=== PATIENT | female | born 1940 | race Caucasian/White ===

== ENCOUNTER 2016-11-01 16:00 | Inpatient (IN) | payer OTHER, MEDICAID ==
[2015-11-03 12:11] VITALS: Ht 154.9 cm; Wt 57.6 kg
[~2016-11-01] VITALS: Ht 154.9 cm; Wt 57.6 kg
[2016-11-01 16:00] VITALS: BP 115/58; PULSE 84; RESP 15; TEMP 99.8; O2SAT 95
[~2016-11-01 16:00] MED LIST: ACET-2165 PO; ASPI325T2 PO; CIPR-172 PO; DONE10TA44 PO; DONE5TAB3 PO; DULR10 RC; HYDR-1189 PO; HYDR-4100 PO; LACTIN PO; LORA-258 PO; MAGN400O4 PO; MEGE400O PO; MELA3TAB37 PO; MEMA10TA12 PO; MULT PO; MULT1CAP34 PO; NA P118E RC; OMEP40CA33 PO
--- NOTE | 2016-11-01 16:00 | NUR ---
Patient to ER bed 2 to gown for evaluation. Side rails up. Report given to ANNETTA Osborne.
--- NOTE | 2016-11-01 16:05 | NUR ---
Dr. mcguire at bedside examining th ept.
--- NOTE | 2016-11-01 16:10 | NUR ---
Pt. brought in to the ER from [facility] Awake by EMS for elevated temp around 0800. as per staff the temp around 0800 was 101. pt. was recently at [facility] for cellulitis of left lower leg, as per emt pt. was given tylenol at 0800 for temp 101,
--- NOTE | 2016-11-01 16:10 | NUR ---
99.0 at this time, Hx of chronic back pain, syncope, fall, dementia, hyperlipidemia, mood disorder, redness over left lower extremity, skin warm to touch, on fleet manager/dispatch
[2016-11-01] MEDS ORDERED: NACL 0.9% 1,000 ML IV SCH (16:19)
[2016-11-01] MEDS ORDERED: ATOR10TA68 PO (16:24)
[2016-11-01] MEDS ORDERED: DOXY-4 PO (16:24)
[2016-11-01] MEDS ORDERED: LACT1CAP61 PO (16:24)
[2016-11-01] MEDS ORDERED: CRAN200C PO (16:24)
[2016-11-01] MEDS ORDERED: RISP0.5T2 PO (16:24)
[2016-11-01 16:55] LABS: BASOPHILS # (AUTO) 0.1 K/uL (0.0-0.2); BASOPHILS % (AUTO) 1.2 % (0.0-2.0); EOSINOPHILS # (AUTO) 0.1 K/uL (0.0-0.4); EOSINOPHILS % (AUTO) 0.7 % (0.0-4.0); HEMOGLOBIN 11.5 g/dL (12.0-16.0); LYMPHOCYTES # (AUTO) 1.8 K/uL (1.0-5.5); MEAN CORPUSCULAR HEMOGLOBIN 29 pg (27-31); MEAN CORPUSCULAR HGB CONC 33 % (32-36); MEAN CORPUSCULAR VOLUME 89 fL (79.0-98.0); MONOCYTES # (AUTO) 1.4 K/uL (0.0-1.0); MONOCYTES % (AUTO) 11.5 % (1.7-9.3); NEUTROPHILS # (AUTO) 8.6 K/uL (1.8-7.7); NEUTROPHILS % (AUTO) 71.6 % (40.0-70.0); PLATELET COUNT (AUTO) 357 K/uL (130-430); RED BLOOD CELL COUNT(AUTO) 3.94 MIL/uL (4.2-6.2); RED CELL DISTRIBUTION WIDTH 13.2 % (9.0-15.0)
[2016-11-01 17:16] LABS: ANION GAP 10 (5-15); CALCIUM 8.9 mg/dL (8.4-11.0); CHLORIDE 106 mmol/L (98-107); CREATININE 0.93 mg/dL (0.55-1.30); GLUCOSE 113 mg/dL (70-99); POTASSIUM 4.3 mmol/L (3.5-5.1); SODIUM SERUM 140 mmol/L (136-145); UREA NITROGEN, BLOOD 27 mg/dL (8-21)
[2016-11-01 17:28] LABS: INR 1.1 (0.8-1.2); PROTHROMBIN TIME 11.9 SECS (9.5-12.5)
--- NOTE | 2016-11-01 17:30 | NUR ---
PT. IN BED, AWAKE ALERT, RESPONSIVE TO PAINFUL STIMULI, VITALS WNL
[2016-11-01 17:32] LABS: ALANINE AMINOTRANSFERASE 39 U/L (12-78); ALBUMIN 2.2 g/dL (3.4-4.8); ASPARTATE AMINOTRANSFERASE 105 U/L (10-37); TOTAL BILIRUBIN 0.3 mg/dL (0.0-1.0)
[2016-11-01] MEDS ORDERED: VANCOMYCIN HCL 1,000 MG in NS 250 ML IV ONE ×2 (18:15→19:30)
[2016-11-01] MEDS ORDERED: PIPERACILLIN/TAZO 3.375 GM in NS 50 ML IV ONE (18:15)
[2016-11-01] MEDS ORDERED: NACL 0.9% 1,000 ML IV ONE (18:15)
[2016-11-01] MEDS ORDERED: cefTRIAXone 1 GM in D5W 50 ML IV ONE (18:15)
[2016-11-01] MEDS ORDERED: cefTRIAXone 1 GM VIAL ONE (18:27)
--- NOTE | 2016-11-01 18:30 | NUR ---
# 16 FR Chambers catheter with use of sterile technique. Immediate return of 50 cc urine noted. Bedside drainage bag placed below level of bladder. Urine sample collected and sent to lab BY MARTHA LITTLEJOHN Pt tolerated procedure WELL.
[2016-11-01 18:39] LABS: BILIRUBIN,URINE NEGATIVE (NEGATIVE); BLOOD, URINE 3+ (NEGATIVE); CLARITY/URINE SL HAZY (CLEAR); COLOR,URINE YELLOW (YELLOW); GLUCOSE,URINE NEGATIVE (NEGATIVE); KETONES,URINE NEGATIVE (NEGATIVE); LEUKOCYTE ESTERASE ,URINE NEGATIVE (NEGATIVE); NITRITE, URINE NEGATIVE (NEGATIVE); PH,URINE 5.5 (5.0-8.0); PROTEIN URINE 1+ (NEGATIVE); UROBILINOGEN,URINE 0.2 (0.2-1.0)
[2016-11-01 19:14] LABS: BACTERIA,URINE FEW /HPF (None Seen); MUCUS,URINE None Seen /LPF (None Seen)
--- NOTE | 2016-11-01 19:35 | NUR ---
Patient will be admitted to care of DR. VAZ Admitted to TELE unit. Will go to room 113 B. Summary report printed. Report given to DINING SERVICES MANAGER
--- NOTE | 2016-11-01 19:49 | NUR ---
ADMISSION NOTE Received patient from ER via marcianorgalindo, received report from angela LITTLEJOHN. Patient admitted with diagnosis of ALOC. Patient oriented to hospital routine, call light, toileting and safety-patient verbalized understanding.
--- NOTE | 2016-11-01 20:00 | NUR ---
INITIAL NOTES: PT IS SLEEPING. PT WAKES UP WHEN CALLED UPON BY NEPHEW. NOT DISTRESS. PT MOAN WHEN LEFT LEG IS MOVE. VITAL SIGN ARE WITH IN NORMAL LIMIT. IV ON LEFT WRIST GAUGE 22- WITH ONGOING NS. PT HAS GOMEZ CATHETER DRAINING WITH YELLOW URINE. NO SKIN BREAKDOWN. SAFETY PRECAUTION. NEEDS ATTENDED. NIECE AT BEDSIDE. WILL MONITOR.
[2016-11-01 20:02] VITALS: BP 120/66; PULSE 92; RESP 18; TEMP 96; O2SAT 94
[2016-11-01] MEDS: NACL 0.9% 1,000 ML IV SCH (20:14)
[2016-11-01] MEDS ORDERED: VANCOMYCIN HCL 1000 MG/VIAL IV ONE (20:51)
--- NOTE | 2016-11-01 22:00 | NUR ---
MD ROUNDS: SEEN BY DR. PANFILO OTERO MADE ORDER.
--- NOTE | 2016-11-01 23:42 | NUR ---
received call from dr. lay order zosyn 3.375mg q6hr ivpb. start at 12mid night.
[2016-11-02] VITALS (7 sets, daily range): BP systolic 116–131; BP diastolic 55–95; PULSE 67–84; RESP 16–24; TEMP 97.2–99.7; O2SAT 93–98
--- NOTE | 2016-11-02 | NUR ---
ROUND NOTES: SLEEPING. NO SOB AND NO PAIN. IVF INFUSING WELL. WILL MONITOR.
[2016-11-02] MEDS ORDERED: PIPERACILLIN/TAZOBACTAM 3.375 GM/VIAL (ZOSYN) IV ONE (01:00)
--- NOTE | 2016-11-02 02:00 | NUR ---
ROUND: RESTING QUIETLY. NO SOB. NO DISCOMFORT.SAFETY ON. WILL MONITOR.
--- NOTE | 2016-11-02 04:00 | NUR ---
ROUND NOTES: SLEEPING. COMFORTABLE. NO BREATHING DIFFICULTY. SIDE RAILS UP. ALARM ON. WILL MONITOR..
[2016-11-02] MEDS: NACL 0.9% 1,000 ML IV SCH ×3 (05:06→23:26)
[2016-11-02] MEDS: PIPERACILLIN/TAZO 3.375/DEX-IS 50 ML IV SCH ×5 (06:23→23:25)
--- NOTE | 2016-11-02 06:59 | NUR ---
ROUND NOTES: SLEEPING. COMFORTABLE. NO BREATHING DIFFICULTY.REPOSITION. SIDE RAILS UP. ALARM ON. WILL MONITOR..
--- NOTE | 2016-11-02 07:03 | NUR ---
KURT VAZ-SPOKE TO MD. ASK MD FOR DNR ORDER. MD ORDER DNR STATUS. WITNESS BY CN.
--- NOTE | 2016-11-02 07:05 | NUR ---
CLOSING: PT IS AWAKE,. QUIETLY. EYES OPEN. STABLE. IV INFUSING WELL. NEEDS ATTENDED. WILL GIVE BEDSIDE REPORT TO AM RN.
--- NOTE | 2016-11-02 07:45 | NUR ---
Patient sleepy does not talk , unable to feed patient doesnt want to open the mouth , IV fluid infusing well DR. ascencio aware , will continue to monitor,
[2016-11-02 07:59] LABS: BASOPHILS % (AUTO) 0.2 % (0.0-2.0); EOSINOPHILS # (AUTO) 0.1 K/uL (0.0-0.4); EOSINOPHILS % (AUTO) 0.6 % (0.0-4.0); HEMATOCRIT 31.3 % (36-48); HEMOGLOBIN 10.6 g/dL (12.0-16.0); LYMPHOCYTES # (AUTO) 1.8 K/uL (1.0-5.5); LYMPHOCYTES % (AUTO) 14.4 % (20.5-51.5); MEAN CORPUSCULAR HEMOGLOBIN 30 pg (27-31); MEAN CORPUSCULAR HGB CONC 34 % (32-36); MEAN CORPUSCULAR VOLUME 89 fL (79.0-98.0); MONOCYTES # (AUTO) 1.3 K/uL (0.0-1.0); NEUTROPHILS # (AUTO) 9.5 K/uL (1.8-7.7); NEUTROPHILS % (AUTO) 74.8 % (40.0-70.0); PLATELET COUNT (AUTO) 288 K/uL (130-430); RED BLOOD CELL COUNT(AUTO) 3.54 MIL/uL (4.2-6.2); RED CELL DISTRIBUTION WIDTH 13.4 % (9.0-15.0); WHITE BLOOD COUNT (AUTO) 12.7 K/uL (4.8-10.8)
[2016-11-02 08:07] LABS: ALANINE AMINOTRANSFERASE 25 U/L (12-78); ALBUMIN 2.1 g/dL (3.4-4.8); ANION GAP 6 (5-15); ASPARTATE AMINOTRANSFERASE 66 U/L (10-37); CALCIUM 8.5 mg/dL (8.4-11.0); CHLORIDE 108 mmol/L (98-107); FREE T4 (FREE THYROXINE) 0.9 ng/dL (0.6-1.6); GLUCOSE 106 mg/dL (70-99); POTASSIUM 3.8 mmol/L (3.5-5.1); SODIUM SERUM 140 mmol/L (136-145); TOTAL BILIRUBIN 0.4 mg/dL (0.0-1.0); TOTAL PROTEIN, SERUM 6.4 g/dL (6.4-8.3); UREA NITROGEN, BLOOD 19 mg/dL (8-21)
[2016-11-02 08:28] LABS: IRON (SERUM) 10 mcg/dL (37-145); TOTAL IRON BIND. CAPACITY 159 ug/dL (250-450)
[2016-11-02] MEDS: cefTRIAXone 1 GM IVPB PREMIX 50 ML IV SCH (08:31)
--- NOTE | 2016-11-02 09:18 | NUR ---
Nutrition Update Junior Scale 16 noted. Pt admitted for ALOC. Diet: mechanical soft BMI: 24 kg/m2 RD to follow per nutrition care standards.
[2016-11-02 09:58] LABS: ERYTHROCYTE SEDIMENTATION RATE 81 MM/HR (0-20)
[2016-11-02] MEDS ORDERED: BISACODYL 10 MG/SUPPOSITORY RC PRN (12:30)
[2016-11-02] MEDS ORDERED: BISACODYL 10 MG/SUPPOSITORY RC ONE (12:30)
[2016-11-02 12:58] LABS: THYROID STIMULATING HORMONE 1.61 uIu/mL (0.36-3.74)
--- NOTE | 2016-11-02 13:30 | NUR ---
Patient came back from CT scan yelling seems in pain left hip repositioned , Luann Koenig informed seen and examined due pain medication given will continue to monitor.
[2016-11-02] MEDS ORDERED: ACETAMINOPHEN 325 MG TABLET PO PRN (13:45)
[2016-11-02] MEDS: KETOROLAC TROMETHAMINE 15 MG VIAL IVP PRN ×2 (13:57→20:18)
[2016-11-02] MEDS ORDERED: KETOROLAC TROMETHAMINE 15 MG VIAL ONE (14:00)
[2016-11-02] MEDS: SOD FERRIC GLUC COMPLEX/SUC 125 MG in NS 100 ML IV SCH (16:09)
--- NOTE | 2016-11-02 16:15 | NUR ---
Rounds Patient is very awake talking facing left side , offered food and drinks but refused to eat , left lower hip noticed with redness and induration hard to touch skin intact will informed admitting doctor. Addendum: 11/02/16 at 1630 by Xiomara Ro RN Dr. Kong was informed regarding subcutaneous induration in the left hip /ct scan result abdomen/pelvis will see the patient in AM.
--- NOTE | 2016-11-02 18:40 | NUR ---
CLOSING NOTES Patient is very awake keep yelling on/off asked if shes in pain denies, repositioned to left side , assisted in feeding but refused, IV Fluid infusing well will continue to monitor
--- NOTE | 2016-11-02 20:00 | NUR ---
Initial note Received awake, alert to name only. Yelling in room. Asked if in pain. Stated have generalized body pain, unable to rate pain. NS infusing to left wrist IV access without difficulty. No shortness of breath noted. Chambers catheter intact draining gary urine. Call light placed within reach. Reoriented to place & time. Fall precautions in place.
--- NOTE | 2016-11-02 20:20 | NUR ---
pain c/o generalized body pain unable to rate pain. stated pain aching and a lot. Toradol IV given as ordered.
--- NOTE | 2016-11-02 20:37 | NUR ---
PAGED PAGED COLETTE OJSE AT [phone] SPOKE WITH FATIMAH.
--- NOTE | 2016-11-02 20:44 | NUR ---
pain/MD Yelling in room. reassessed for pain. stated pain still the same. asked to show where her pain is. stated, "it's in Kristin." Started yelling "Kristin". Reoriented to place & time. paged and returned call. Asked for something to relax patient with new orders given.
[2016-11-02] MEDS: QUEtiapine FUMARATE 25 MG TABLET PO SCH (21:27)
--- NOTE | 2016-11-02 21:31 | NUR ---
Agitation Remains confused yelling in bed. Denies pain. Seroquel po given as ordered.
--- NOTE | 2016-11-03 02:17 | NUR ---
Rounds Resting quietly with eyes closed, no apparent distress noted. No c/o pain or discomfort. Call light placed within reach. Fall precautions in place.
[2016-11-03 03:52] VITALS: BP 113/80; PULSE 72; RESP 18; TEMP 96.6; O2SAT 94
--- NOTE | 2016-11-03 05:02 | NUR ---
hygiene Had moderate formed brown stool. Partial bed bath given with TEST CONSULTANT. Gown and linen changed. Turned and repositioned with pillow support.
[2016-11-03] MEDS: PIPERACILLIN/TAZO 3.375/DEX-IS 50 ML IV SCH ×3 (05:26→17:15)
--- NOTE | 2016-11-03 07:00 | NUR ---
Closing Note Resting quietly, no apparent distress. No c/o pain or discomfort. Remains oriented to name only, confused. Reoriented to place & time. Call light placed within reach. Fall precautions in place. All needs attended to. Will give report to oncoming shift RN.
[2016-11-03 07:29] LABS: BASOPHILS % (AUTO) 0.4 % (0.0-2.0); EOSINOPHILS # (AUTO) 0.4 K/uL (0.0-0.4); EOSINOPHILS % (AUTO) 3.6 % (0.0-4.0); HEMATOCRIT 30.7 % (36-48); HEMOGLOBIN 10.2 g/dL (12.0-16.0); LYMPHOCYTES # (AUTO) 1.5 K/uL (1.0-5.5); LYMPHOCYTES % (AUTO) 12.9 % (20.5-51.5); MEAN CORPUSCULAR HEMOGLOBIN 30 pg (27-31); MEAN CORPUSCULAR HGB CONC 33 % (32-36); MEAN CORPUSCULAR VOLUME 89 fL (79.0-98.0); MONOCYTES # (AUTO) 0.9 K/uL (0.0-1.0); MONOCYTES % (AUTO) 7.5 % (1.7-9.3); NEUTROPHILS # (AUTO) 9.2 K/uL (1.8-7.7); NEUTROPHILS % (AUTO) 75.6 % (40.0-70.0); PLATELET COUNT (AUTO) 316 K/uL (130-430); RED BLOOD CELL COUNT(AUTO) 3.44 MIL/uL (4.2-6.2); RED CELL DISTRIBUTION WIDTH 13.5 % (9.0-15.0)
[2016-11-03 07:46] LABS: ALANINE AMINOTRANSFERASE 27 U/L (12-78); ALBUMIN 1.8 g/dL (3.4-4.8); ANION GAP 8 (5-15); ASPARTATE AMINOTRANSFERASE 38 U/L (10-37); CALCIUM 8.6 mg/dL (8.4-11.0); CHLORIDE 110 mmol/L (98-107); CREATININE 0.91 mg/dL (0.55-1.30); GLUCOSE 94 mg/dL (70-99); POTASSIUM 3.8 mmol/L (3.5-5.1); SODIUM SERUM 144 mmol/L (136-145); TOTAL BILIRUBIN 0.3 mg/dL (0.0-1.0); TOTAL PROTEIN, SERUM 6.1 g/dL (6.4-8.3); UREA NITROGEN, BLOOD 20 mg/dL (8-21)
--- NOTE | 2016-11-03 08:00 | NUR ---
INITIAL NOTES RECEIVED PATIENT ON BED AWAKE.BREATHING EVEN AND UNLABORED.NO ACUTE DISTRESS.IVF INFUSING WELL;NO SIGNS AND SYMPTOMS OF INFILTRATION.SAFETY AND FALL PRECAUTIONS IN PLACE.CALL LIGHT WITHIN REACH
[2016-11-03] MEDS: cefTRIAXone 1 GM IVPB PREMIX 50 ML IV SCH (08:53)
[2016-11-03] MEDS: QUEtiapine FUMARATE 25 MG TABLET PO SCH ×2 (08:53→22:40)
[2016-11-03] MEDS: NACL 0.9% 1,000 ML IV SCH (08:58)
[2016-11-03 09:06] VITALS: BP 142/64; PULSE 70; RESP 18; TEMP 96.8; O2SAT 98
--- NOTE | 2016-11-03 10:20 | NUR ---
NOTES PATIENT ON BED AWAKE.CALM AND RELAX;NO ACUTE DISTRESS
[2016-11-03 12:20] VITALS: BP 139/62; PULSE 72; RESP 17; TEMP 98; O2SAT 98
--- NOTE | 2016-11-03 12:45 | NUR ---
NOTES LUNCH SERVED;REFUSED TO EAT;ENCOURAGED AND OFFERED ALTERNATIVES BUT REFUSED
[2016-11-03] MEDS: SOD FERRIC GLUC COMPLEX/SUC 125 MG in NS 100 ML IV SCH (12:49)
[2016-11-03 14:10] LABS: FOLATE (FOLIC ACID) 8.9 ng/mL (>3.0)
--- NOTE | 2016-11-03 14:40 | NUR ---
NOTES PATIENT ON BED ASLEEP.NO ACUTE DISTRESS
[2016-11-03 16:24] VITALS: BP 142/68; PULSE 80; RESP 17; TEMP 98; O2SAT 97
--- NOTE | 2016-11-03 17:20 | NUR ---
NOTES PATIENT STARTED YELLING NAMES;ASKED WHAT SHE WANTS BUT RESPOND INAPPROPRIATELY.REPOSITIONING DONE FOR COMFORT
[2016-11-03] MEDS: KETOROLAC TROMETHAMINE 15 MG VIAL IVP PRN (17:49)
--- NOTE | 2016-11-03 18:50 | NUR ---
CLOSING NOTES PATIENT ON BED AWAKE STILL WITH EPISODES OF YELLING.NO SIGNS AND SYMPTOMS OF ACUTE DISTRESS Addendum: 11/03/16 at 2009 by Ghazal Collazo RN BREATHING EVEN AND UNLABORED.IVF INFUSING WELL;NO SIGNS AND SYMPTOMS OF INFILTRATION.SAFETY AND FALL PRECAUTIONS IN PLACE.CALL LIGHT WITHIN REACH.WILL ENDORSE TO NEXT SHIFT ACCORDINGLY
--- NOTE | 2016-11-03 19:30 | NUR ---
OPENING NOTE PATIENT IS A/OX1. BREATHING IS NON LABORED. NO SIGNS OF DISTRESS. BREATHING IS NON LABORED. PATIENT IS TALKING AND IS SITTING UP IN BED. IV IS PATENT AND SHOWS NO SIGNS OF COMPLICATIONS. GOMEZ IS NOTED AND IS PATENT. CALL LIGHT IS WITHIN REACH. BED ALARM IS ON. PATIENT INSTRUCTED TO CALL FOR ASSISTANCE. WILL CONTINUE TO MONITOR.
[2016-11-03 19:50] VITALS: BP 123/67; RESP 16; TEMP 98.4; O2SAT 98
[2016-11-03] MEDS ORDERED: VANCOMYCIN HCL 1,000 MG in NS 250 ML IV ONE (20:00)
--- NOTE | 2016-11-03 21:50 | NUR ---
ROUNDS PATIENT IS IN BED AND IS CONFUSED. PATIENT WAS REORIENTED TO SURROUNDINGS. PATIENT IS CALMED DOWNED. NO SIGNS OF DISTRESS. BREATHING IS NON LABORED. BED ALARM IS ON. CALL LIGHT IS WITHIN REACH. WILL CONTINUE TO MONITOR.
[2016-11-03] MEDS: LACTOBACILLUS RHAMNOSUS GG 1 CAP CAPSULE PO SCH (22:40)
[2016-11-04] MEDS: AMPICILLIN SODIUM/SULBACTAM NA 1.5 GM in NS 50 ML IV SCH ×4 (00:03→17:04)
--- NOTE | 2016-11-04 00:15 | NUR ---
ROUNDS PATIENT IS IN BED SLEEPING. NO SIGNS OF DISTRESS. BREATHING IS NON LABORED. CALL LIGHT IS WITHIN REACH. BED ALARM IS ON. WILL CONTINUE TO MONITOR.
[2016-11-04 00:19] VITALS: BP 126/56; PULSE 77; RESP 18; TEMP 97.9; O2SAT 96
[2016-11-04] MEDS: NACL 0.9% 1,000 ML IV SCH ×2 (01:36→06:48)
--- NOTE | 2016-11-04 02:20 | NUR ---
ROUNDS PATIENT WAS GIVEN A WARM BLANKET. CALL LIGHT IS WITHIN REACH. BED ALARM IS ON. WILL CONTINUE TO MONITOR.
[2016-11-04 04:18] VITALS: BP 130/71; PULSE 69; RESP 18; TEMP 97.9; O2SAT 94
--- NOTE | 2016-11-04 06:30 | NUR ---
CLOSING NOTES PATIENT IS IN BED WATCHING TV. NO SIGNS OF DISTRESS. BREATHING IS NON LABORED. CALL LIGHT IS WITHIN REACH. BED ALARM IS ON. PATIENT WAS GIVEN WATER AND APPLE JUICE TO DRINK. WILL ENDORSE CARE TO THE MORNING NURSE.
[2016-11-04 07:45] VITALS: BP 150/91; PULSE 76; RESP 18; TEMP 97.6; O2SAT 99
--- NOTE | 2016-11-04 07:48 | NUR ---
INITIAL NOTES RECEIVED PATIENT ON BED AWAKE.CALM AND RELAX.BREATHING EVEN AND UNLABORED.NO ACUTE DISTRESS.IVF INFUSING WELL;NO SIGNS AND SYMPTOMS OF INFILTRATION.SAFETY AND FALL PRECAUTIONS IN PLACE.CALL LIGHT WITHIN REACH
[2016-11-04 08:13] LABS: BASOPHILS # (AUTO) 0.1 K/uL (0.0-0.2); BASOPHILS % (AUTO) 0.6 % (0.0-2.0); EOSINOPHILS # (AUTO) 0.5 K/uL (0.0-0.4); EOSINOPHILS % (AUTO) 4.5 % (0.0-4.0); HEMATOCRIT 30.6 % (36-48); LYMPHOCYTES # (AUTO) 1.7 K/uL (1.0-5.5); LYMPHOCYTES % (AUTO) 16.3 % (20.5-51.5); MEAN CORPUSCULAR HEMOGLOBIN 29 pg (27-31); MEAN CORPUSCULAR HGB CONC 33 % (32-36); MEAN CORPUSCULAR VOLUME 89 fL (79.0-98.0); MONOCYTES # (AUTO) 0.7 K/uL (0.0-1.0); MONOCYTES % (AUTO) 6.8 % (1.7-9.3); NEUTROPHILS # (AUTO) 7.3 K/uL (1.8-7.7); NEUTROPHILS % (AUTO) 71.8 % (40.0-70.0); PLATELET COUNT (AUTO) 397 K/uL (130-430); RED BLOOD CELL COUNT(AUTO) 3.42 MIL/uL (4.2-6.2); RED CELL DISTRIBUTION WIDTH 13.4 % (9.0-15.0); WHITE BLOOD COUNT (AUTO) 10.3 K/uL (4.8-10.8)
[2016-11-04] MEDS: LACTOBACILLUS RHAMNOSUS GG 1 CAP CAPSULE PO SCH ×2 (08:45→22:12)
[2016-11-04 08:46] LABS: ANION GAP 11 (5-15); CALCIUM 8.6 mg/dL (8.4-11.0); CHLORIDE 111 mmol/L (98-107); CREATININE 0.77 mg/dL (0.55-1.30); GLUCOSE 73 mg/dL (70-99); POTASSIUM 3.5 mmol/L (3.5-5.1); SODIUM SERUM 143 mmol/L (136-145); UREA NITROGEN, BLOOD 20 mg/dL (8-21)
[2016-11-04] MEDS: QUEtiapine FUMARATE 25 MG TABLET PO SCH ×2 (08:46→22:12)
--- NOTE | 2016-11-04 10:32 | NUR ---
NOTES PATIENT ON BED AWAKE;CALM AND RELAX;NO ACUTE DISTRESS
[2016-11-04] MEDS: KETOROLAC TROMETHAMINE 15 MG VIAL IVP PRN (11:40)
[2016-11-04 12:05] VITALS: BP 134/66; PULSE 57; RESP 20; TEMP 97; O2SAT 99
[2016-11-04] MEDS: SOD FERRIC GLUC COMPLEX/SUC 125 MG in NS 100 ML IV SCH (12:36)
--- NOTE | 2016-11-04 12:40 | NUR ---
NOTES TRIED TO FEED PATIENT BUT REFUSED;ENCOURAGED AND OFFERED STILL REFUSED
[2016-11-04 16:48] VITALS: BP 147/72; PULSE 80; RESP 20; TEMP 97.8; O2SAT 98
[2016-11-04] MEDS ORDERED: QUEtiapine FUMARATE 25 MG TABLET PO ONE (17:30)
[2016-11-04] MEDS ORDERED: MORPHINE 2 MG/ML INJ. SYRINGE IVP PRN (17:30)
[2016-11-04] MEDS ORDERED: CYANOCOBALAMIN 1000 MCG/ML VIAL IM ONE (17:30)
[2016-11-04] MEDS ORDERED: QUEtiapine FUMARATE 25 MG TABLET PO SCH (17:30)
[2016-11-04] MEDS ORDERED: LORazepam 2 MG/ML VIAL IVP PRN (17:30)
--- NOTE | 2016-11-04 17:30 | NUR ---
NOTES SEEN AND EXAMINED BY DR. VAZ;WITH ORDERS AND CARRIED OUT Addendum: 11/04/16 at 1954 by Ghazal Collazo RN INFORMED DR. VAZ THAT PATIENT HAS NOT BEEN EATING EVEN WITH ENCOURAGEMENT
[2016-11-04] MEDS ORDERED: MEGESTROL ACETATE 400 MG/10 ML UDC PO ONE (17:45)
[2016-11-04] MEDS: LR 1,000 ML IV SCH ×2 (18:44→22:15)
--- NOTE | 2016-11-04 19:00 | NUR ---
CLOSING NOTES PATIENT ON BED AWAKE.CALM AND RELAX.BREATHING EVEN AND UNLABORED.NO ACUTE DISTRESS.IVF INFUSING WELL;NO SIGNS AND SYMPTOMS OF INFILTRATION.SAFETY AND FALL PRECAUTIONS IN PLACE.CALL LIGHT WITHIN REACH.WILL ENDORSE TO NEXT SHIFT ACCORDINGLY
--- NOTE | 2016-11-04 19:50 | NUR ---
OPENING NOTES PATIENT IS A/O2. NO COMPLAINTS OF PAIN(GRIMACING). VITAL SIGNS ARE STABLE. BREATHING IS NON LABORED. NO SIGNS OF DISTRESS. GOMEZ IS NOTED AND IS PATENT. IV SHOWS NO SIGNS OF COMPLICATIONS. PATIENT INSTRUCTED TO CALL FOR ASSISTANCE. CALL LIGHT IS WITHIN REACH. BED ALARM IS ON. WILL CONTINUE TO MONITOR.
[2016-11-04 20:41] VITALS: BP 116/57; PULSE 88; RESP 17; TEMP 97.9
--- NOTE | 2016-11-04 21:30 | NUR ---
ROUNDS PATIENT WAS GIVEN JUICE TO DRINK.
[2016-11-04] MEDS: VANCOMYCIN HCL 750 MG in NS 250 ML IV SCH (22:13)
[2016-11-05] VITALS (7 sets, daily range): BP systolic 96–114; BP diastolic 43–64; PULSE 65–80; RESP 16–24; TEMP 97–97.9; O2SAT 93–97
[2016-11-05] MEDS: AMPICILLIN SODIUM/SULBACTAM NA 1.5 GM in NS 50 ML IV SCH ×5 (00:39→23:36)
--- NOTE | 2016-11-05 01:14 | NUR ---
ROUNDS PATIENT WAS GIVEN A WARM BLANKET. NO SIGNS OF DISTRESS. BREATHING IS NON LABORED. CALL LIGHT IS WITHIN REACH. BED ALARM IS ON. WILL CONTINUE TO MONITOR.
--- NOTE | 2016-11-05 06:35 | NUR ---
CLOSING NOTES PATIENT IS IN BED SLEEPING. BREATHING IS NON LABORED. NO SIGNS OF DISTRESS. CALL LIGHT IS WITHIN REACH. BED ALARM IS ON. IV SHOWS NO SIGNS OF COMPLICATIONS. WILL ENDORSE CARE TO THE MORNING NURSE.
--- NOTE | 2016-11-05 07:30 | NUR ---
initial notes: pt sleeping. stable. i.v. access patent. call light within reach. report given at bedside.
[2016-11-05 08:18] LABS: BASOPHILS # (AUTO) 0.1 K/uL (0.0-0.2); BASOPHILS % (AUTO) 0.6 % (0.0-2.0); EOSINOPHILS # (AUTO) 0.6 K/uL (0.0-0.4); EOSINOPHILS % (AUTO) 6.6 % (0.0-4.0); HEMATOCRIT 32.5 % (36-48); HEMOGLOBIN 10.9 g/dL (12.0-16.0); LYMPHOCYTES # (AUTO) 1.9 K/uL (1.0-5.5); LYMPHOCYTES % (AUTO) 20.1 % (20.5-51.5); MEAN CORPUSCULAR HEMOGLOBIN 30 pg (27-31); MEAN CORPUSCULAR HGB CONC 34 % (32-36); MEAN CORPUSCULAR VOLUME 89 fL (79.0-98.0); MONOCYTES # (AUTO) 0.7 K/uL (0.0-1.0); MONOCYTES % (AUTO) 7.6 % (1.7-9.3); NEUTROPHILS # (AUTO) 6.2 K/uL (1.8-7.7); NEUTROPHILS % (AUTO) 65.1 % (40.0-70.0); PLATELET COUNT (AUTO) 439 K/uL (130-430); RED BLOOD CELL COUNT(AUTO) 3.63 MIL/uL (4.2-6.2); RED CELL DISTRIBUTION WIDTH 13.7 % (9.0-15.0); WHITE BLOOD COUNT (AUTO) 9.5 K/uL (4.8-10.8)
[2016-11-05 08:26] LABS: ANION GAP 6 (5-15); CALCIUM 8.8 mg/dL (8.4-11.0); CHLORIDE 114 mmol/L (98-107); CREATININE 0.81 mg/dL (0.55-1.30); GLUCOSE 91 mg/dL (70-99); POTASSIUM 3.6 mmol/L (3.5-5.1); SODIUM SERUM 145 mmol/L (136-145); UREA NITROGEN, BLOOD 15 mg/dL (8-21)
[2016-11-05] MEDS: LR 1,000 ML IV SCH (08:46)
[2016-11-05 08:53] LABS: ERYTHROCYTE SEDIMENTATION RATE 62 MM/HR (0-20)
[2016-11-05] MEDS: QUEtiapine FUMARATE 25 MG TABLET PO SCH ×2 (09:32→21:20)
[2016-11-05] MEDS: MEGESTROL ACETATE 400 MG/10 ML UDC PO SCH (09:32)
[2016-11-05] MEDS: LACTOBACILLUS RHAMNOSUS GG 1 CAP CAPSULE PO SCH ×2 (09:33→21:20)
[2016-11-05] MEDS: KETOROLAC TROMETHAMINE 15 MG VIAL IVP PRN (10:18)
--- NOTE | 2016-11-05 10:20 | NUR ---
rounds: patient keeps on screaming and asking for help. Pain meds given.
--- NOTE | 2016-11-05 12:20 | NUR ---
DISCHARGE PLANNING Faxed referral to [phone] for possible discharge back to SNF. Will follow up. Placed transportation packet in nurses station. Any ambulance can be arranged.
--- NOTE | 2016-11-05 12:21 | NUR ---
rounds: patient sleeping. no distress noted. antibiotic administered.
[2016-11-05] MEDS: SOD FERRIC GLUC COMPLEX/SUC 125 MG in NS 100 ML IV SCH (12:55)
--- NOTE | 2016-11-05 14:22 | NUR ---
PT NOTES CHART REVIEWED AND CLEARED FOR PT BY RN. PATIENT IN SEMIFOWLER POSITION RESTING AND SOMEWHAT EASY TO AROUSE. PATIENT INITIALLY DECLINED PARTICIPATION IN THERAPY STATING, "NO!". PATIENT MOTIVATED AND EDUCATED. PATIENTS BP WAS TAKEN 88/36, RN MADE AWARE AND WILL HOLD THERAPY D/T LOW BP AT THIS TIME. RN MONITORING PATIENT. WILL FOLLOW UP PATIENT NEXT SESSION IF POSSIBLE, RN AWARE. PVEx1 Addendum: 11/05/16 at 1448 by Noemy Isaacs PT PHYSICAL THERAPY CO-SIGN The Physical Therapy Progress Notes documented by Unit Trust Manager have been reviewed. Reviewed/Co-Signed by: Noemy Isaacs,PT Documentation Done by: Christopher Hubbard, BUTT SAWYER I concur with the documentation of this BUTT SAWYER. Plan: continue PT as per plan of care.
--- NOTE | 2016-11-05 14:35 | NUR ---
Keron rounds: Dr. Kong informed patient is whizzing and low BP with an order to stop fluids, lasix and neb treatment.
[2016-11-05] MEDS ORDERED: methylPREDNISolone SOD SUCC/PF 62.5 MG/ML VIAL IVP ONE (14:45)
[2016-11-05] MEDS ORDERED: FUROSEMIDE 20 MG TABLET PO ONE (15:00)
[2016-11-05] MEDS ORDERED: FUROSEMIDE 20 MG/2 ML VIAL IVP ONE (15:15)
[2016-11-05] MEDS: ALBUTEROL SULFATE 0.083% 2.5 MG/3 ML VIAL.NEB INH SCH ×3 (15:27→23:46)
[2016-11-05] MEDS ORDERED: HALOPERIDOL 1 MG TABLET (HALDOL) PO ONE (16:00)
--- NOTE | 2016-11-05 16:00 | NUR ---
rounds: patient keeps on screaming. Haldol was given.
--- NOTE | 2016-11-05 17:00 | NUR ---
rounds: pt on bed resting. no distress noted.
--- NOTE | 2016-11-05 18:00 | NUR ---
rounds: patient improved. no distress noted.
--- NOTE | 2016-11-05 19:30 | NUR ---
closing notes: patient on bed awake and screaming. confused. stable. report given at bedside.
--- NOTE | 2016-11-05 20:35 | NUR ---
Patient awake yelling out comfort measures implemented & helpful kept clean and dry / .
[2016-11-05] MEDS: VANCOMYCIN HCL 750 MG in NS 250 ML IV SCH (21:19)
[2016-11-05] MEDS: HALOPERIDOL 1 MG TABLET (HALDOL) PO SCH (21:20)
--- NOTE | 2016-11-05 22:15 | NUR ---
Haldol 1 mg po given for agitation & helpful / .
--- NOTE | 2016-11-05 23:39 | NUR ---
Hourly Rounding call brown with patient bed to low position / .
--- NOTE | 2016-11-05 23:40 | NUR ---
SEROQUEL 50 MG PO given for yelling out & helpful / .
[2016-11-06] VITALS: BP 102/52; PULSE 85; RESP 17; TEMP 97.2; O2SAT 93
--- NOTE | 2016-11-06 03:31 | NUR ---
Reposition & Turning off loading with pillows kept clean and dry as needed / .
[2016-11-06] MEDS: ALBUTEROL SULFATE 0.083% 2.5 MG/3 ML VIAL.NEB INH SCH ×4 (03:47→15:26)
[2016-11-06 04:00] VITALS: BP 108/58; PULSE 82; RESP 17; TEMP 97.6; O2SAT 100
--- NOTE | 2016-11-06 05:08 | NUR ---
Hourly Rounding patient resting this hour , HOB elevated , kept clean & dry as needed / .
[2016-11-06] MEDS: AMPICILLIN SODIUM/SULBACTAM NA 1.5 GM in NS 50 ML IV SCH ×2 (05:50→11:16)
--- NOTE | 2016-11-06 06:46 | NUR ---
PHOTO Picture taken of left Hip skin redness & put in Medical Record / .
[2016-11-06 07:20] LABS: ALANINE AMINOTRANSFERASE 22 U/L (12-78); ANION GAP 8 (5-15); ASPARTATE AMINOTRANSFERASE 19 U/L (10-37); CALCIUM 8.3 mg/dL (8.4-11.0); CHLORIDE 110 mmol/L (98-107); CREATININE 0.98 mg/dL (0.55-1.30); GLUCOSE 155 mg/dL (70-99); POTASSIUM 3.7 mmol/L (3.5-5.1); SODIUM SERUM 144 mmol/L (136-145); TOTAL BILIRUBIN 0.2 mg/dL (0.0-1.0); TOTAL PROTEIN, SERUM 6.3 g/dL (6.4-8.3); UREA NITROGEN, BLOOD 17 mg/dL (8-21)
[2016-11-06 07:23] LABS: BASOPHILS % (AUTO) 0.2 % (0.0-2.0); HEMATOCRIT 31.3 % (36-48); HEMOGLOBIN 10.5 g/dL (12.0-16.0); LYMPHOCYTES # (AUTO) 0.7 K/uL (1.0-5.5); MEAN CORPUSCULAR HEMOGLOBIN 30 pg (27-31); MEAN CORPUSCULAR HGB CONC 34 % (32-36); MEAN CORPUSCULAR VOLUME 89 fL (79.0-98.0); MONOCYTES # (AUTO) 0.1 K/uL (0.0-1.0); MONOCYTES % (AUTO) 1.2 % (1.7-9.3); NEUTROPHILS # (AUTO) 10.9 K/uL (1.8-7.7); NEUTROPHILS % (AUTO) 92.6 % (40.0-70.0); PLATELET COUNT (AUTO) 503 K/uL (130-430); RED BLOOD CELL COUNT(AUTO) 3.53 MIL/uL (4.2-6.2); RED CELL DISTRIBUTION WIDTH 13.6 % (9.0-15.0); WHITE BLOOD COUNT (AUTO) 11.7 K/uL (4.8-10.8)
[2016-11-06] MEDS: MEGESTROL ACETATE 400 MG/10 ML UDC PO SCH (08:08)
[2016-11-06] MEDS: LACTOBACILLUS RHAMNOSUS GG 1 CAP CAPSULE PO SCH (08:08)
[2016-11-06] MEDS: HALOPERIDOL 1 MG TABLET (HALDOL) PO SCH ×2 (08:08→14:01)
[2016-11-06] MEDS: QUEtiapine FUMARATE 25 MG TABLET PO SCH (08:08)
[2016-11-06 12:08] VITALS: BP 102/60; PULSE 87; RESP 18; TEMP 98; O2SAT 97
[2016-11-06] MEDS: SOD FERRIC GLUC COMPLEX/SUC 125 MG in NS 100 ML IV SCH (13:00)
[2016-11-06] MEDS: KETOROLAC TROMETHAMINE 15 MG VIAL IVP PRN (14:37)
--- NOTE | 2016-11-06 16:21 | NUR ---
Discharge Planning Received order for transfer back to SNF. contacted patient's next of kin: Anshul (nephew) [phone] and left message about transfer back to her SNF. Contacted Darrel Cummins and patient will return to her same Room# 203-B. Report # [phone]. Contacted [facility], , and scheduled mixing picker tender for 1800 today. ANNETTA Ortiz updated.
[2016-11-06 16:41] VITALS: BP 108/58; PULSE 87; RESP 18; TEMP 98; O2SAT 97
[2016-11-06 16:58] VITALS: BP 110/57; PULSE 90; RESP 18; TEMP 98.9; O2SAT 99
--- NOTE | 2016-11-06 18:05 | NUR ---
PATIENT ALERT AWAKE CONFUSED, GOMEZ CATHETER TAKEN OUT NO COMPLICATIONS CLEAR YELLOW URINE IN BAG, VITALS WNL, NO SIGN OF PAIN, PATIENT CLEANED AND DRESSED IN NEW GOWN NO BELONGINGS, PAPERS GIVEN TO TRANSPORT TEAM AND REPORT, PATIENT ON GURNEY GOING TO TRANSPORT VAN
== END 2016-11-06 18:05 | DRG 871 ==
LOC: SED 16:00 → STU 19:26 → SMU 11-02 11:08
PROVIDERS: ADMIT Internal Medicine; ATTEND Internal Medicine
DX: A41.9 Sepsis, unspecified organism (principal); G93.41 Metabolic encephalopathy; E43 Unspecified severe protein-calorie malnutrition; L03.317 Cellulitis of buttock; L03.116 Cellulitis of left lower limb; N39.0 Urinary tract infection, site not specified; E86.0 Dehydration; E78.5 Hyperlipidemia, unspecified; R29.6 Repeated falls; J44.9 Chronic obstructive pulmonary disease, unspecified; G30.9 Alzheimer's disease, unspecified; F02.80 Dementia in other diseases classified elsewhere, unspecified severity, without behavioral disturbance, psychotic disturbance, mood disturbance, and anxiety; G89.29 Other chronic pain; M54.9 Dorsalgia, unspecified; K56.41 Fecal impaction; D50.9 Iron deficiency anemia, unspecified; D63.8 Anemia in other chronic diseases classified elsewhere; F29 Unspecified psychosis not due to a substance or known physiological condition; I95.9 Hypotension, unspecified; Z66 Do not resuscitate; Z87.440 Personal history of urinary (tract) infections; Z68.24 Body mass index [BMI] 24.0-24.9, adult; Z79.899 Other long term (current) drug therapy; D64.9 Anemia, unspecified
CPT/HCPCS: 36415; 70450-TC; 71010; 72170-TC; 80048; 80053; 81000-TC; 82607; 82746; 83540-TC; 83550-TC; 83605; 83735-TC; 84439; 84443-TC; 84484; 85025; 85610-TC; 85651-TC; 85730-TC; 86710; 87040-TC; 87081; 93005; 93306; 94640; 94760; 96361; 96365; 97530-GP; 99285; J0295; J0696; J1885; J1940; J2270; J2543; J2916; J2930; J3370; J3420; J7030; J7050; J7120

== ENCOUNTER 2016-12-03 22:20 | Inpatient (IN) | payer OTHER, MEDICAID ==
[~2016-12-03] VITALS: Ht 154.9 cm; Wt 54.9 kg
[~2016-12-03 22:20] MED LIST changes: +ATOR10TA68 PO; +CRAN200C PO; +DOXY-4 PO; +LACT1CAP61 PO; +RISP0.5T2 PO
[2016-12-03 22:28] VITALS: BP 110/60; PULSE 88; RESP 22; TEMP 98.9; O2SAT 99
--- NOTE | 2016-12-03 22:28 | NUR ---
MD SAUNDERS AT BEDSIDE EXAMINING PT
--- NOTE | 2016-12-03 22:28 | NUR ---
Placed in room 1 . Placed on sliver former, blood pressure machine and pulse oximeter. To gown for exam. Side rails up.
--- NOTE | 2016-12-03 22:30 | NUR ---
Pt brought to ED by ambulance from [facility] with c/o being sick and not well x1, with fever max T 99.8 x3 hrs per facility. Pt appeared lethargic and disoriented, non-verbal, skin intact, heel pad in place. On 10L O2 at arrival, O2 saturation 98%. No other sign of acute distress noted.Will continue to monitor
[2016-12-03] MEDS ORDERED: NS 1000 ML BAG IV ONE (22:45)
[2016-12-03 23:18] LABS: BASOPHILS # (AUTO) 0.1 K/uL (0.0-0.2); BASOPHILS % (AUTO) 0.3 % (0.0-2.0); EOSINOPHILS # (AUTO) 0.4 K/uL (0.0-0.4); EOSINOPHILS % (AUTO) 2.4 % (0.0-4.0); HEMOGLOBIN 10.6 g/dL (12.0-16.0); LYMPHOCYTES % (AUTO) 11.1 % (20.5-51.5); MEAN CORPUSCULAR HEMOGLOBIN 31 pg (27-31); MEAN CORPUSCULAR HGB CONC 33 % (32-36); MEAN CORPUSCULAR VOLUME 92 fL (79.0-98.0); MONOCYTES # (AUTO) 1.2 K/uL (0.0-1.0); MONOCYTES % (AUTO) 6.6 % (1.7-9.3); NEUTROPHILS # (AUTO) 13.9 K/uL (1.8-7.7); NEUTROPHILS % (AUTO) 79.6 % (40.0-70.0); PLATELET COUNT (AUTO) 331 K/uL (130-430); RED BLOOD CELL COUNT(AUTO) 3.47 MIL/uL (4.2-6.2); RED CELL DISTRIBUTION WIDTH 14.8 % (9.0-15.0); WHITE BLOOD COUNT (AUTO) 17.6 K/uL (4.8-10.8)
[2016-12-03 23:23] LABS: CALCIUM 8.9 mg/dL (8.4-11.0); CHLORIDE 111 mmol/L (98-107); CREATININE 0.97 mg/dL (0.55-1.30); GLUCOSE 116 mg/dL (70-99); POTASSIUM 4.5 mmol/L (3.5-5.1); SODIUM SERUM 145 mmol/L (136-145); UREA NITROGEN, BLOOD 24 mg/dL (8-21)
[2016-12-03 23:25] LABS: INR 1.1 (0.8-1.2); PROTHROMBIN TIME 11.8 SECS (9.5-12.5)
[2016-12-03 23:27] LABS: ALANINE AMINOTRANSFERASE 17 U/L (12-78); ALBUMIN 2.4 g/dL (3.4-4.8); ASPARTATE AMINOTRANSFERASE 26 U/L (10-37); TOTAL BILIRUBIN 0.2 mg/dL (0.0-1.0); TOTAL PROTEIN, SERUM 6.4 g/dL (6.4-8.3)
[2016-12-03 23:30] LABS: ANION GAP < 3 (5-15)
--- NOTE | 2016-12-03 23:30 | NUR ---
Pt met sepsis protocol, blood cultx2, lactic acid x2, levaquin 750mg IV, 2000 mL NS bolus administered
[2016-12-03] MEDS ORDERED: IPRA3AMP9 INH (23:49)
[2016-12-04] VITALS (9 sets, daily range): BP systolic 88–129; BP diastolic 42–70; PULSE 73–95; RESP 18–20; TEMP 96.8–98.7; O2SAT 94–99
--- NOTE | 2016-12-04 00:05 | NUR ---
Medication reconciliation completed with information provided by - list from facility. Any prior medication reconciliation on file was reviewed and corrected.
--- NOTE | 2016-12-04 00:10 | NUR ---
Patient will be admitted to care of . Admitted to telemetry unit. Will go to room 105A. Belongings list completed. Summary report printed. Report given to Vahid LITTLEJOHNlibrary aide to 105A via ACLS protocol. 2 Licensed nurse present. IV present no signs or symptoms of infiltration.
--- NOTE | 2016-12-04 00:10 | NUR ---
ADMISSION NOTE Received patient from ER via zohra, received report from jeanmarie LITTLEJOHN. Patient admitted with diagnosis of pneumonia. Patient oriented to hospital routine, call light, toileting and safety-patient. pt is confused. safety on.
--- NOTE | 2016-12-04 00:30 | NUR ---
pt.recieved.pt.presents lethargic status:affect;pt.presents expressive asphasia.kimble catheter.o2 applied:set@2l/min via nasal cannulae.pt.skin integrity assessment.pt.presents wpunds;sacrum;rt./lt.side.pix taken.iv access liners:x3:lt.x2 rt. hand x1.
[2016-12-04 00:38] LABS: BILIRUBIN,URINE NEGATIVE (NEGATIVE); BLOOD, URINE 1+ (NEGATIVE); CLARITY/URINE SL CLOUDY (CLEAR); COLOR,URINE YELLOW (YELLOW); GLUCOSE,URINE NEGATIVE (NEGATIVE); KETONES,URINE NEGATIVE (NEGATIVE); LEUKOCYTE ESTERASE ,URINE 1+ (NEGATIVE); NITRITE, URINE POSITIVE (NEGATIVE); PH,URINE 5.5 (5.0-8.0); PROTEIN URINE 1+ (NEGATIVE); UROBILINOGEN,URINE 0.2 (0.2-1.0)
--- NOTE | 2016-12-04 01:00 | NUR ---
pt.assessed.pt.presents quiescent affect;calm,asleep.iv fluids infusing via rt.hand iv acces.o2 sat % assessed. 95%+@2l/min.call ligt placed w/in pt's reach.
[2016-12-04] MEDS: LR 1,000 ML IV SCH ×2 (01:04→10:49)
[2016-12-04] MEDS ORDERED: cefTRIAXone 1 GM IVPB PREMIX 50 ML IV ONE (01:23)
[2016-12-04 01:37] LABS: BACTERIA,URINE MANY /HPF (None Seen); MUCUS,URINE None Seen /LPF (None Seen); RBC,URINE 0-3 /HPF (0-3); WBC,URINE >100 /HPF (0-3)
[2016-12-04] MEDS: ACETAMINOPHEN 650 MG/20.3 ML UDC PO PRN (01:47)
--- NOTE | 2016-12-04 02:00 | NUR ---
pt.assessed.pt.repositioned.pt.presents quiescent affect;calm,asleep.no distress/discomfort manifested. call light laced w/in pt's reach.
[2016-12-04] MEDS: cefTRIAXone 1 GM IVPB PREMIX 50 ML IV SCH ×2 (03:00→10:48)
--- NOTE | 2016-12-04 03:00 | NUR ---
pt.presents facial grimaces,moaning.per flacc pain assessment.i have administered tylenol:650mg elixir po. call light placed w/in pt's reach.2 f/u assess pt per pain protocol.
--- NOTE | 2016-12-04 04:00 | NUR ---
pt.assessed.pt.presents quiescent affect;pt.repositioned.call light placed w/in pt's reach.
[2016-12-04 04:23] LABS: BLOOD GAS PH 7.304 (7.350-7.450)
[2016-12-04 04:24] LABS: BLOOD GAS BASE EXCESS 5.9 mmol/L (-3.0-3.0)
[2016-12-04 04:25] LABS: ABG TOTAL HEMOGLOBIN 11.5 G/dL (12.0-18.0); BLOOD GAS COHb% 0.6 % (0.5-1.5); BLOOD GAS HHB 0.8 % (0.0-6.0)
[2016-12-04] MEDS: IPRATROPIUM/ALBUTEROL SULFATE 3 ML AMPUL.NEB INH SCH ×4 (04:30→19:59)
--- NOTE | 2016-12-04 05:00 | NUR ---
pt.assessed.pt.presents quiescent affect;calm,asleep.no distress/discomfort manifested.iv fliuids infusing. o2 sat% assessed:95%@2l/min via nc.call light palced w/in pt's reach.
[2016-12-04] MEDS ORDERED: LACTOBACILLUS RHAMNOSUS GG 1 CAP CAPSULE PO SCH (09:00)
--- NOTE | 2016-12-04 10:07 | NUR ---
ROUNDS Patient sleeping at this time, chest rise noted. IVF infusing as ordered. No further needs at this time. Will continue to monitor. Safety and fall precautions in place, call light within reach.
--- NOTE | 2016-12-04 10:07 | NUR ---
AM ROUNDS Late entry due to patient care. Patient received, non verbal at this time. Sleeping arousable to name and light stimuli, unable to track with eyes at this time. Respirations even and unlabored. VSS. Temperature WNL at this time. facilities administrator in place, rhythm noted. IV site patent intact and infusing fluids as ordered. Plan of care unable to be discussed due to patients mental status, no family at bedside. Safety and fall precautions in place, call light within reach. Will continue to monitor. Addendum: 12/04/16 at 1009 by Tiffanie Sanabria RN NOTE FOR 08
--- NOTE | 2016-12-04 12:51 | NUR ---
ROUNDS Patient sleeping, arousable to name and light stimuli. Patient able to verbalize she did not want to eat. Dr. Kong at bedside, aware. IVF infusing as ordered. No acute distress. Will continue to monitor. Safety and fall precautions in place, call light within reach.
[2016-12-04] MEDS ORDERED: BISACODYL 10 MG/SUPPOSITORY RC PRN (13:00)
[2016-12-04] MEDS ORDERED: IPRATROPIUM/ALBUTEROL SULFATE 3 ML AMPUL.NEB INH PRN (13:00)
[2016-12-04 13:13] LABS: BASOPHILS % (AUTO) 0.3 % (0.0-2.0); EOSINOPHILS # (AUTO) 0.2 K/uL (0.0-0.4); HEMATOCRIT 30.4 % (36-48); HEMOGLOBIN 9.9 g/dL (12.0-16.0); LYMPHOCYTES # (AUTO) 1.7 K/uL (1.0-5.5); LYMPHOCYTES % (AUTO) 15.2 % (20.5-51.5); MEAN CORPUSCULAR HEMOGLOBIN 30 pg (27-31); MEAN CORPUSCULAR HGB CONC 33 % (32-36); MEAN CORPUSCULAR VOLUME 93 fL (79.0-98.0); MONOCYTES # (AUTO) 0.7 K/uL (0.0-1.0); MONOCYTES % (AUTO) 5.9 % (1.7-9.3); NEUTROPHILS # (AUTO) 8.8 K/uL (1.8-7.7); NEUTROPHILS % (AUTO) 76.6 % (40.0-70.0); PLATELET COUNT (AUTO) 277 K/uL (130-430); RED BLOOD CELL COUNT(AUTO) 3.28 MIL/uL (4.2-6.2); RED CELL DISTRIBUTION WIDTH 15.1 % (9.0-15.0); WHITE BLOOD COUNT (AUTO) 11.4 K/uL (4.8-10.8)
[2016-12-04 13:26] LABS: CALCIUM 8.7 mg/dL (8.4-11.0); CHLORIDE 110 mmol/L (98-107); GLUCOSE 101 mg/dL (70-99); SODIUM SERUM 141 mmol/L (136-145); UREA NITROGEN, BLOOD 17 mg/dL (8-21)
[2016-12-04 13:32] LABS: ALANINE AMINOTRANSFERASE 15 U/L (12-78); ALBUMIN 2.1 g/dL (3.4-4.8); ASPARTATE AMINOTRANSFERASE 28 U/L (10-37); TOTAL BILIRUBIN 0.1 mg/dL (0.0-1.0); TOTAL PROTEIN, SERUM 5.9 g/dL (6.4-8.3)
[2016-12-04 13:34] LABS: ANION GAP < 3 (5-15); POTASSIUM 4.5 mmol/L (3.5-5.1)
[2016-12-04] MEDS: D5LR 1,000 ML IV SCH (14:31)
[2016-12-04] MEDS: LORazepam 1 MG TABLET PO PRN (14:31)
--- NOTE | 2016-12-04 14:35 | NUR ---
ROUNDS Patient awake at this time, getting restless and pulling at tubes. Reoriented patient to time and location. Covered tubes, medication given as indicated. No swallowing difficulties at this time. IVF infusing as ordered. Will continue to monitor. Side rails upx3, call light within reach, patient closest to nurses station.
--- NOTE | 2016-12-04 16:11 | NUR ---
Nutrition Update Junior Scale 14 noted Pt was admitted for pneumonia Diet: mechanical soft BMI: 22.9 kg/m2 RD to follow up per nutrition care standards.
--- NOTE | 2016-12-04 16:32 | NUR ---
ROUNDS Patient repositioned. Patient continues to moan, states "no" when asked if she is in pain. IVF infusing as ordered. Safety and fall precautions in place, call light within reach. Side rails upx3. Will continue to monitor.
--- NOTE | 2016-12-04 18:03 | NUR ---
CLOSING NOTE Patient tolerating dinner well. No acute distress. VSS. Patient denies pain at this time. IVF infusing as ordered. No further needs, all needs met throughout shift. Safety and fall precautions in place, call light within reach, side rails upx3. Will endorse to next shift.
--- NOTE | 2016-12-04 20:00 | NUR ---
EYES CLOSED, AROUSABLE ON VERBAL STIMULI. DOES NOT FOLLOW COMMANDS. ON O2 AT 2L/MIN/NC. BREATH SOUNDS ESSENTIALLY CLEAR. BOEL SOUNDS (+). PULSES PALPABLE. SKIN W/D. COLOR SATISFACTORY. HOB UP TO COMFORT. SIDE RAILS UP X2. GOMEZ CATH PATENT DRAINING CLOUDY YELLOW URINE TO GRAVITY. SR.
[2016-12-04] MEDS: LEVOFLOXACIN 500 MG/D5W 100 ML IV SCH (21:48)
--- NOTE | 2016-12-04 22:00 | NUR ---
PT MOANS AND SHOUTS INCOMPREHENSIBLE SOUNDS. DOES NOT ANSWER WHEN ASKED WHY. ATTENDED TO NEEDS. REPOSITIONED. DR VAZ HERE, SEEN PT. AWARE THAT PT IS MAKING INCOMPREHENSIBLE SOUNDS. ORDERED SEROQUEL 25 MG PO, TO BE CARRIED OUT.
[2016-12-04] MEDS: QUEtiapine FUMARATE 25 MG TABLET PO SCH (22:30)
[2016-12-04] MEDS ORDERED: QUEtiapine FUMARATE 25 MG TABLET PO ONE (23:00)
--- NOTE | 2016-12-04 23:00 | NUR ---
STILL SHOUTING. SEROQUEL 25 MG PO GIVEN CRUSHED IN APPLE SAUCE WITH GOOD RESULTS. PT ABLE TO SLEEP AFTERWARDS.
[2016-12-05] MEDS: IPRATROPIUM/ALBUTEROL SULFATE 3 ML AMPUL.NEB INH SCH ×4 (01:32→19:00)
[2016-12-05 04:13] VITALS: BP 106/52; PULSE 76; RESP 18; TEMP 97; O2SAT 98
--- NOTE | 2016-12-05 04:30 | NUR ---
SLEPT FOR LONG PERIODS OF TIME. SPONGE BATH GIVEN. ORAL CARE, GOMEZ CARE, MARGARET-CARE, BACK CARE, SKIN CARE RENDERED. PARTIAL LINEN CHANGE. DOES NOT ASSIST WITH TURNING. DONOVAN PROC WELL.
[2016-12-05] MEDS: D5LR 1,000 ML IV SCH ×2 (05:03→20:27)
--- NOTE | 2016-12-05 06:00 | NUR ---
MOANS AND SHOUTS PRN. UO ADEQUATE. ATTENDED TO NEEDS. REMAINS IN GUARDED CONDITION.
[2016-12-05 07:23] LABS: BASOPHILS % (AUTO) 0.3 % (0.0-2.0); EOSINOPHILS # (AUTO) 0.5 K/uL (0.0-0.4); EOSINOPHILS % (AUTO) 4.8 % (0.0-4.0); HEMATOCRIT 30.1 % (36-48); HEMOGLOBIN 9.8 g/dL (12.0-16.0); LYMPHOCYTES # (AUTO) 1.8 K/uL (1.0-5.5); LYMPHOCYTES % (AUTO) 18.3 % (20.5-51.5); MEAN CORPUSCULAR HEMOGLOBIN 30 pg (27-31); MEAN CORPUSCULAR HGB CONC 33 % (32-36); MEAN CORPUSCULAR VOLUME 93 fL (79.0-98.0); MONOCYTES # (AUTO) 0.8 K/uL (0.0-1.0); MONOCYTES % (AUTO) 7.7 % (1.7-9.3); NEUTROPHILS # (AUTO) 6.7 K/uL (1.8-7.7); NEUTROPHILS % (AUTO) 68.9 % (40.0-70.0); PLATELET COUNT (AUTO) 305 K/uL (130-430); RED BLOOD CELL COUNT(AUTO) 3.24 MIL/uL (4.2-6.2); RED CELL DISTRIBUTION WIDTH 15.6 % (9.0-15.0); WHITE BLOOD COUNT (AUTO) 9.8 K/uL (4.8-10.8)
[2016-12-05 07:25] LABS: ANION GAP 1 (5-15); CALCIUM 8.9 mg/dL (8.4-11.0); CHLORIDE 107 mmol/L (98-107); CREATININE 0.68 mg/dL (0.55-1.30); GLUCOSE 94 mg/dL (70-99); POTASSIUM 4.1 mmol/L (3.5-5.1); SODIUM SERUM 142 mmol/L (136-145); UREA NITROGEN, BLOOD 11 mg/dL (8-21)
[2016-12-05 08:15] VITALS: BP 126/71; PULSE 82; RESP 20; TEMP 97; O2SAT 97
--- NOTE | 2016-12-05 08:30 | NUR ---
Patient resting in bed, she does moaning for a good part of the morning. When asked what she needs, and if she has pain, she responds that she is fine. She is a total care, and needs to be assisted with her meals. She is on telemetry and SR HR 82 to ausculation. Lungs have expiratory wheezing, and diminished at bases. IV site right hand with D5LR infusing, and IV site without swelling or redness. Yfn Pendleton RN
[2016-12-05 08:42] LABS: IRON (SERUM) 41 mcg/dL (37-145); TOTAL IRON BIND. CAPACITY 207 ug/dL (250-450)
[2016-12-05] MEDS ORDERED: MULTIVITAMINS TAB 1 TABLET PO SCH (09:00)
[2016-12-05] MEDS ORDERED: CYANOCOBALAMIN 1000 MCG/ML VIAL IM ONE (10:00)
[2016-12-05] MEDS: cefTRIAXone 1 GM IVPB PREMIX 50 ML IV SCH (10:01)
[2016-12-05] MEDS: QUEtiapine FUMARATE 25 MG TABLET PO SCH ×2 (10:02→20:22)
[2016-12-05] MEDS: LACTOBACILLUS RHAMNOSUS GG 1 CAP CAPSULE PO SCH (10:03)
[2016-12-05] MEDS: MEGESTROL ACETATE 400 MG/10 ML UDC PO SCH (10:07)
[2016-12-05] MEDS ORDERED: MULTIVITS,CA,MINERALS/IRON/FA 1 TABLET PO ONE (10:30)
[2016-12-05 12:34] VITALS: BP 120/59; PULSE 85; RESP 18; TEMP 97.7; O2SAT 97
--- NOTE | 2016-12-05 13:00 | NUR ---
Patient is a total feeder, and I did assist her, and consumed 45% and tolerated well. Patient IV site intact and no redness or swelling noted. Yfn Pendleton RN
[2016-12-05] MEDS: LORazepam 1 MG TABLET PO PRN (13:22)
[2016-12-05] MEDS ORDERED: DILTIAZEM HCL 25 MG/5 ML VIAL IVP PRN (14:30)
--- NOTE | 2016-12-05 14:30 | NUR ---
Patient HR going to the 170s, and Dr Kong paged, and orders written. The patient had a stat EKG done, and read to Dr Kong by phone. HR spontaneously goes to low 100's without medication. Yfn Pendleton RN
[2016-12-05 15:31] VITALS: BP 138/70; PULSE 111; RESP 16; TEMP 97.7; O2SAT 93
--- NOTE | 2016-12-05 18:45 | NUR ---
Family member Anshul JENSEN and nephew/DPOA of patient visiting prior to shift change, and finds IV infiltrated at right hand IV site, arm swollen to elbow, and elevated on pillow, and I did put warm towel, and bath blanket wrap after discontinuing the IV, and removing the wrist bands. The patient is moving her fingers well, and she can lift her arm upright. Yfn Pendleton RN
--- NOTE | 2016-12-05 19:15 | NUR ---
PM ASSESSMENT: Patient awake but does not follow commands. Unable to assess orientation due to patient moaning at the beginning of the shift. When asked a question, patient just moans. SR on the monitor. On O2 at 2LPM via nasal cannula. IV access on the left hand G 24 and G 22, patent and intact with D5 LR running at 70ml/hr. No signs of redness or swelling on the IV site. Right hand blister and swelling of the right arm noted. Elevated with a pillow. Chambers cath draining yellow urine. HOB elevated at 20 degrees with 2 side rails and bed in lowest level. Bed brakes locked. Call light within reach. Will continue to monitor.
[2016-12-05 20:00] VITALS: BP 142/52; PULSE 84; RESP 18; TEMP 99.1; O2SAT 95
[2016-12-05] MEDS: LEVOFLOXACIN 500 MG/D5W 100 ML IV SCH (20:22)
--- NOTE | 2016-12-05 21:55 | NUR ---
MD VISIT: Dr. Kong made visit to patient and changed diet to pureed diet and ordered bilateral SCDs. Orders noted and carried out.
[2016-12-06] VITALS: BP 105/57; PULSE 79; RESP 16; TEMP 97.1; O2SAT 96
[2016-12-06] MEDS: IPRATROPIUM/ALBUTEROL SULFATE 3 ML AMPUL.NEB INH SCH ×4 (01:00→19:49)
--- NOTE | 2016-12-06 03:18 | NUR ---
PT UPDATE: Patient sleeping comfortably at this time. No acute distress or SOB noted. Vital signs stable. Safety precautions in place. Call light within reach. Will continue to monitor.
[2016-12-06 04:03] VITALS: BP 111/55; PULSE 64; RESP 18; TEMP 97.5; O2SAT 98
--- NOTE | 2016-12-06 05:11 | NUR ---
PT UPDATE: Patient awake, moaning but in no acute distress or SOB. Patient transferred to an air low mattress bed, tolerated well. Vital signs stable. Patient mostly slept through the night. Safety precautions in place. Will continue to monitor.
[2016-12-06] MEDS: LORazepam 1 MG TABLET PO PRN ×2 (05:47→17:27)
[2016-12-06 07:28] LABS: BASOPHILS % (AUTO) 0.5 % (0.0-2.0); EOSINOPHILS # (AUTO) 0.6 K/uL (0.0-0.4); EOSINOPHILS % (AUTO) 7.2 % (0.0-4.0); HEMATOCRIT 30.1 % (36-48); HEMOGLOBIN 9.9 g/dL (12.0-16.0); LYMPHOCYTES % (AUTO) 24.6 % (20.5-51.5); MEAN CORPUSCULAR HEMOGLOBIN 30 pg (27-31); MEAN CORPUSCULAR HGB CONC 33 % (32-36); MEAN CORPUSCULAR VOLUME 91 fL (79.0-98.0); MONOCYTES # (AUTO) 0.7 K/uL (0.0-1.0); MONOCYTES % (AUTO) 8.2 % (1.7-9.3); NEUTROPHILS # (AUTO) 4.8 K/uL (1.8-7.7); NEUTROPHILS % (AUTO) 59.5 % (40.0-70.0); PLATELET COUNT (AUTO) 322 K/uL (130-430); RED BLOOD CELL COUNT(AUTO) 3.31 MIL/uL (4.2-6.2); RED CELL DISTRIBUTION WIDTH 15.1 % (9.0-15.0); WHITE BLOOD COUNT (AUTO) 8.1 K/uL (4.8-10.8)
[2016-12-06 07:30] LABS: ALANINE AMINOTRANSFERASE 13 U/L (12-78); ALBUMIN 2.1 g/dL (3.4-4.8); ANION GAP 3 (5-15); ASPARTATE AMINOTRANSFERASE 18 U/L (10-37); CALCIUM 9.2 mg/dL (8.4-11.0); CHLORIDE 106 mmol/L (98-107); CREATININE 0.73 mg/dL (0.55-1.30); GLUCOSE 100 mg/dL (70-99); POTASSIUM 4.2 mmol/L (3.5-5.1); SODIUM SERUM 143 mmol/L (136-145); TOTAL BILIRUBIN 0.2 mg/dL (0.0-1.0); UREA NITROGEN, BLOOD 7 mg/dL (8-21)
[2016-12-06 07:53] VITALS: BP 157/85; PULSE 79; RESP 18; TEMP 97.5; O2SAT 94
--- NOTE | 2016-12-06 08:00 | NUR ---
NOTE PT MOANING AND RESTLESS, BUT IN NO DISTRESS AT THIS TIME. NO SOB/RESP DISTRESS OR PAIN/DISCOMFORT NOTED AT THIS TIME. PT AWAKENED BUT WILL NOT RESPOND OR OPEN HER MOUTH. IVF'S INFUSING WELL THROUGH LEFT HAND IV SITE. PT HAS O2 ON A 2L/NC. PT ON AN AIR MATTRESS AND HAS SCD'S ON BILATERALLY AT THIS TIME. PT NEXT TO NURSES'S STATION FOR CLOSE OBSERVATION AT ALL TIMES. CALL LIGHT WITHIN REACH.
[2016-12-06] MEDS: cefTRIAXone 1 GM IVPB PREMIX 50 ML IV SCH (08:53)
[2016-12-06] MEDS: QUEtiapine FUMARATE 25 MG TABLET PO SCH ×2 (08:56→21:29)
--- NOTE | 2016-12-06 10:00 | NUR ---
NOTE PT WAS TURNED AND GIVEN HYGIENE CARE BY [employer] C[employer] PROTECTION OFFICER. WHEN ATTEMPT WAS MADE TO FEED PT SHE STILL REFUSES TO SWALLOW HER PUREED FOOD OR ANY OF HER PO MEDS AT THIS TIME. PT DROWSY AND JUST MOANS AT THIS TIME. GOMEZ CATHETER INTACT AND DRAINING WELL ALL SHIFT. CALL LIGHT WITHIN REACH.
[2016-12-06] MEDS: MULTIVITS,CA,MINERALS/IRON/FA 1 TABLET PO SCH (10:31)
[2016-12-06] MEDS: LACTOBACILLUS RHAMNOSUS GG 1 CAP CAPSULE PO SCH (10:31)
[2016-12-06] MEDS: MEGESTROL ACETATE 400 MG/10 ML UDC PO SCH (10:31)
[2016-12-06] MEDS: CYANOCOBALAMIN 1000 mCg TABLET PO SCH (10:32)
[2016-12-06 11:37] VITALS: BP 117/51; PULSE 67; RESP 19; TEMP 97.5; O2SAT 99
--- NOTE | 2016-12-06 13:00 | NUR ---
NOTE PT SLEEPY AND REFUSES TO EAT OR DRINK ANYTHING FROM HER LUNCH TRAY. IS AROUSABLE BUT DOES NOT WANT ANY FOOD OR DRINK AT THIS TIME. CALL LIGHT WITHIN REACH.
[2016-12-06 13:59] VITALS: Ht 154.9 cm; Wt 54.9 kg
[2016-12-06] MEDS: D5LR 1,000 ML IV SCH (14:45)
--- NOTE | 2016-12-06 15:15 | NUR ---
note wound assessment on coccyx completed by Sky hunter trapper and RN at this time.
--- NOTE | 2016-12-06 15:15 | NUR ---
WOUND EVALUATION: Wound Consult received from Dr. Kong. Thank you, Dr. Kong, for the consult. Patient received in a Hussein Bed with an IsoFlex mattress with low air-loss therapy initiated, awake, alert, confused. Patient is unable to turn independently. Junior Score is a 12. Past Medical History: Dementia with Psychosis, Anemia, and Hyperlipidemia. Recent Labs: WBC 8.1, RBC 3.31, Hct 9.9, Hgb 30.1, BUN 7, Creat 0.73, Gluc 100, Alb 2.1, PTT 25.9. Intrinsic factors that delay wound healing: Anemia. Extrinsic factors that delay wound healing: Decreased mobility. Microbiology: MRSA Screen negative. Blood Culture x 2 in progress. Urine Culture positive for E. Coli, ESBL, MDRO. Wound Assessment: 1) Left Buttock: Wound, present on admission. Wound bed is 100% red tissue. No odor, no drainage. Ffii-wound intact. Dark discolored area present left lateral. Measures 1.5 cm x 2.1 cm. 2) Gluteal Sulcus: Wound, present on admission. Wound bed is 100% pink tissue. No odor, no drainage. Fifi-wound intact. Measures 1.0 cm x 0.3 cm x 0.2 cm. 3) Right Medial Buttock: Wound, present on admission. Wound bed is 100% pink tissue. No odor, no drainage. Fifi-wound intact. Measures 1.2 cm x 0.9 cm x 0.1 cm. Recommend: Cleanse wounds with normal saline. Place moisture barrier cream onto wounds and fifi-wounds. Apply Hydrogel onto any portions of wound beds not covered by moisture barrier cream. Cover with Sacral foam dressing. Perform wound care daily, and as needed for dressing soiling or dislodgement. Also recommend: Reposition patient side to side only every 2 hours with pillow support and off-load pressure areas with pillows for pressure re-distribution. Offload, elevate and float bilateral heels with pillows. Perform skin care and monitor skin integrity Q shift. Use moisture barrier cream on buttocks and other moisture susceptible areas QID and as needed for soiling. Maintain patient on a low air-loss mattress.
[2016-12-06 15:49] VITALS: BP 114/62; PULSE 58; RESP 19; TEMP 97; O2SAT 95
[2016-12-06] MEDS: PIPERACILLIN/TAZO 3.375/DEX-IS 50 ML IV SCH (18:29)
--- NOTE | 2016-12-06 18:40 | NUR ---
NOTE PT WAS FED SOME DINNER BY STAFF, PT DOES RESIST BUT EATS A LITTLE WHEN ENCOURAGED AT THIS TIME. PT STILL MOANING OUT, ATIVAN PO WAS CRUSHED AND GIVEN TO PT WITH APPLE SAUCE THIS AFTERNOON. PT HAS O2 ON AT 2L/NC. IVF'S INFUSING THROUGH LEFT HAND IV SITE AT THIS TIME. CALL LIGHT WITHIN REACH. PT WAS CHECKED ON Q1' AND PRN ALL SHIFT.
[2016-12-06] MEDS ORDERED: MULTIVITS,CA,MINERALS/IRON/FA 1 TABLET PO SCH (19:15)
[2016-12-06 20:00] VITALS: BP 115/52; PULSE 85; RESP 18; TEMP 97; O2SAT 99
[2016-12-06] MEDS ORDERED: CYANOCOBALAMIN 1000 MCG/ML VIAL IM ONE (20:00)
--- NOTE | 2016-12-06 20:00 | NUR ---
Rounds Received patient lying in bed resting, no s/s of any pain, no acute distress noted. Iv site checked intact and patent, IV fluid infusing well. call light within reach.
[2016-12-06] MEDS ORDERED: SOD FERRIC GLUC COMPLEX/SUC 125 MG in NS 100 ML IV SCH (21:00)
--- NOTE | 2016-12-06 22:00 | NUR ---
PATIENT RESTING: Patient resting quietly. No acute distress noted. Call light within reach.
[2016-12-07] VITALS (8 sets, daily range): BP systolic 100–155; BP diastolic 50–102; PULSE 77–99; RESP 16–18; TEMP 96.7–97.7; O2SAT 94–100
[2016-12-07] MEDS: IPRATROPIUM/ALBUTEROL SULFATE 3 ML AMPUL.NEB INH SCH ×3 (00:08→13:23)
[2016-12-07] MEDS: PIPERACILLIN/TAZO 3.375/DEX-IS 50 ML IV SCH ×3 (00:10→11:10)
--- NOTE | 2016-12-07 00:25 | NUR ---
PATIENT RESTING: Patient resting quietly. No acute distress noted. Repositioned to side with pillow support. Call light within reach.
--- NOTE | 2016-12-07 02:00 | NUR ---
PATIENT RESTING: Patient resting quietly. No acute distress noted. Call light within reach.
--- NOTE | 2016-12-07 03:59 | NUR ---
Rounds Patient slept on and off, no s/s of any pain, no acute distress noted. call light within reach.
[2016-12-07] MEDS: LORazepam 1 MG TABLET PO PRN (05:01)
[2016-12-07] MEDS: D5LR 1,000 ML IV SCH ×2 (05:10→12:30)
[2016-12-07 06:06] LABS: FOLATE (FOLIC ACID) 6.5 ng/mL (>3.0)
--- NOTE | 2016-12-07 06:48 | NUR ---
Closing notes Patient sleep intermittently. no other changes noted on patient current condition.
[2016-12-07] MEDS: ACETAMINOPHEN 650 MG/20.3 ML UDC PO PRN (07:00)
[2016-12-07 07:21] LABS: BASOPHILS % (AUTO) 0.5 % (0.0-2.0); EOSINOPHILS # (AUTO) 0.4 K/uL (0.0-0.4); EOSINOPHILS % (AUTO) 5.7 % (0.0-4.0); HEMOGLOBIN 10.4 g/dL (12.0-16.0); LYMPHOCYTES # (AUTO) 1.9 K/uL (1.0-5.5); LYMPHOCYTES % (AUTO) 23.8 % (20.5-51.5); MEAN CORPUSCULAR HEMOGLOBIN 30 pg (27-31); MEAN CORPUSCULAR HGB CONC 33 % (32-36); MEAN CORPUSCULAR VOLUME 89 fL (79.0-98.0); MONOCYTES # (AUTO) 0.6 K/uL (0.0-1.0); MONOCYTES % (AUTO) 8.2 % (1.7-9.3); NEUTROPHILS # (AUTO) 4.9 K/uL (1.8-7.7); NEUTROPHILS % (AUTO) 61.8 % (40.0-70.0); PLATELET COUNT (AUTO) 335 K/uL (130-430); RED BLOOD CELL COUNT(AUTO) 3.47 MIL/uL (4.2-6.2); RED CELL DISTRIBUTION WIDTH 14.8 % (9.0-15.0); WHITE BLOOD COUNT (AUTO) 7.8 K/uL (4.8-10.8)
[2016-12-07 07:38] LABS: ANION GAP 5 (5-15); CALCIUM 9.1 mg/dL (8.4-11.0); CHLORIDE 104 mmol/L (98-107); CREATININE 0.82 mg/dL (0.55-1.30); GLUCOSE 96 mg/dL (70-99); SODIUM SERUM 143 mmol/L (136-145); UREA NITROGEN, BLOOD 8 mg/dL (8-21)
[2016-12-07] MEDS: LACTOBACILLUS RHAMNOSUS GG 1 CAP CAPSULE PO SCH (09:27)
[2016-12-07] MEDS: MULTIVITS,CA,MINERALS/IRON/FA 1 TABLET PO SCH (09:27)
[2016-12-07] MEDS: MEGESTROL ACETATE 400 MG/10 ML UDC PO SCH (09:27)
[2016-12-07] MEDS: CYANOCOBALAMIN 1000 mCg TABLET PO SCH (09:27)
[2016-12-07] MEDS: QUEtiapine FUMARATE 25 MG TABLET PO SCH (09:27)
--- NOTE | 2016-12-07 10:06 | NUR ---
DISCHARGE PLANNING DC planning order back to SNF today. Faxed SNF referral to [facility] . Will follow up. Addendum: 12/07/16 at 1152 by Lizabeth POE Spoke with Sabra in admitting at [facility] patient assigned to [facility] room 108B RN to report [phone], bed available anytime. Sabra requested return call back with time ambulance will be arranged. ANNETTA Guevara made aware, pending time to arrange transport. Called patient [facility] [phone] left voice message requesting return call back. Called [facility] ambulance spoke with Amos [phone] placed BLS transport on will call. Placed transportation packet in nurses station. Addendum: 12/07/16 at 1422 by Lizabeth Manning DP Spoke with patient faith [facility] who is agreeable with patient discharge back to SNF today.
[2016-12-07 10:13] LABS: RETICULOCYTE COUNT 1.4 % (0.5-1.5)
--- NOTE | 2016-12-07 14:00 | NUR ---
RECIEVED DISCHARGE ORDER FROM DR. VAZ TO [facility]. PUT CALL INTO MAILING SECTION CLERK THAT ORDER WAS RECIEVED; LEFT MESSAGE ON ANSWERING MACHINE.
--- NOTE | 2016-12-07 14:40 | NUR ---
LEFT MESSAGE ON ANSWERING MACHINE FOR KRISTEN HER NEPHEW OF PATIENT REGARDING DISCHARGE STATUS OF PATIENT.
--- NOTE | 2016-12-07 15:23 | NUR ---
PAPER WORK PREPARED FOR TRANSFER TO [facility] VIA [facility]; CALLED [facility] AND PUT PT TRANSFER DOWN FOR 1700PM.
[2016-12-07] MEDS ORDERED: EPOETIN ALFA 4,000 UNITS/ML VIAL SUBCUT SCH (17:00)
--- NOTE | 2016-12-07 17:19 | NUR ---
[facility] HERE TO EDITOR NEWS AND TRANSFER PATIENT TO [facility]; REPORT CALLED INTO HENRRY LITTLEJOHN AT [facility]. F/C REMOVED; IV SITE TO INTACT AND REMAINING IN PLACE. PT CLEAN AND DRY, NO SOB OR DISTRESS NOTED.
[2017-02-21 13:00] LABS: BLOOD O2Hb% 97.7 % (94.0-97.0)
== END 2016-12-07 17:19 | DRG 871 ==
LOC: SED 22:20 → STU 12-04
PROVIDERS: ADMIT Internal Medicine; ATTEND Internal Medicine
DX: A41.9 Sepsis, unspecified organism (principal); G93.41 Metabolic encephalopathy; E43 Unspecified severe protein-calorie malnutrition; J18.9 Pneumonia, unspecified organism; N39.0 Urinary tract infection, site not specified; D64.9 Anemia, unspecified; E78.5 Hyperlipidemia, unspecified; Z66 Do not resuscitate; E86.0 Dehydration; B96.20 Unspecified Escherichia coli [E. coli] as the cause of diseases classified elsewhere; D50.9 Iron deficiency anemia, unspecified; D63.8 Anemia in other chronic diseases classified elsewhere; F06.30 Mood disorder due to known physiological condition, unspecified; R09.89 Other specified symptoms and signs involving the circulatory and respiratory systems; J44.9 Chronic obstructive pulmonary disease, unspecified; J45.909 Unspecified asthma, uncomplicated; G30.9 Alzheimer's disease, unspecified; F02.80 Dementia in other diseases classified elsewhere, unspecified severity, without behavioral disturbance, psychotic disturbance, mood disturbance, and anxiety; G89.29 Other chronic pain; Z51.5 Encounter for palliative care; M54.9 Dorsalgia, unspecified; Z79.82 Long term (current) use of aspirin; Z68.22 Body mass index [BMI] 22.0-22.9, adult; Z79.899 Other long term (current) drug therapy
CPT/HCPCS: 36415; 36600; 71010; 80048; 80053; 81000-TC; 82607; 82746; 82803-TC; 83540-TC; 83550-TC; 83605; 83874; 83880; 84484; 85025; 85044-TC; 85610-TC; 85730-TC; 87040-TC; 87081; 87086; 87186-TC; 93005; 94640; 94760; 96360; 99285; J0696; J0885; J1956; J2543; J2916; J3420; J7030; J7120